=== PATIENT | male | born 1970 | race Caucasian/White ===

== ENCOUNTER 2016-12-16 08:47 | Emergency (ER) | payer OTHER ==
[2016-12-16 09:26] LABS: HEMOGLOBIN 15.7 gm/dl (14.0-17.5); RED BLOOD COUNT 4.97 M/UL (4.20-5.50); WHITE BLOOD COUNT 14.1 K/UL (4.5-11.0)
[2016-12-16 09:43] LABS: BUN/CREATININE RATIO 16 (0-10)
== END 2016-12-16 16:50 | disposition left against medical advice (07) ==
LOC: ER1 08:47
PROVIDERS: Emergency Medicine
DX: J18.9 Pneumonia, unspecified organism (principal); R09.02 Hypoxemia; F17.210 Nicotine dependence, cigarettes, uncomplicated; Z88.0 Allergy status to penicillin
CPT/HCPCS: 36415; 71010; 80053; 82550; 82553; 83605; 83874; 84484; 85025; 87040; 93005; 94664; 96365; 96366; 96375; 99285; J1100; J1956; J2930; J7050; Q9962; Q9963